=== PATIENT | male | born 2000 | race Caucasian/White ===

== ENCOUNTER 2018-05-22 21:42 | Emergency (ER) | payer OTHER | END 2018-05-23 00:59 | disposition home or self-care (01) | LOC: FTE 21:42 | DX: M79.641 Pain in right hand (principal) | CPT/HCPCS: 29125; 73110-RT; 73130-RT; 99283-25 ==

== ENCOUNTER 2018-05-26 21:00 | Emergency (ER) | payer OTHER ==
[2018-05-26] MEDS: SOD CHLORIDE 0.9% 1,000 ML IV ×2 (21:28)
[2018-05-26 21:29] LABS: ADD MAN DIFF? NO
[2018-05-26] MEDS ORDERED: SOD CHLORIDE 0.9% 250 ML IV (21:30)
[2018-05-26 21:32] LABS: BASOPHIL # 0.1 10^3/ul (0.0-0.1); BASOPHILS % 0.6 % (0.0-2.0); EOSINOPHILS # 0.1 10^3/ul (0.0-0.5); EOSINOPHILS % 0.6 % (0.0-7.0); HEMATOCRIT 50.9 % (42.0-52.0); LYMPHOCYTES % 34.1 % (18.0-55.0); MEAN CORPUSCULAR HEMOGLOBIN 29.5 pg (29.0-33.0); MEAN CORPUSCULAR HGB CONC 35.4 g/dl (32.0-37.0); MEAN CORPUSCULAR VOLUME 83.3 fl (72.0-104.0); MEAN PLATELET VOLUME 9.8 fl (7.4-10.4); MONOCYTE # 0.8 10^3/ul (0.3-0.9); MONOCYTES % 6.8 % (0.0-13.0); NEUTROPHIL # 6.6 10^3/ul (1.6-7.5); NEUTROPHILS % 56.7 % (30.0-74.0); PLATELET COUNT 376 10^3/UL (140-415); RED BLOOD COUNT 6.11 10^6/ul (4.70-6.10); RED CELL DISTRIBUTION WIDTH 11.6 % (11.5-14.5)
[2018-05-26 21:32] LABS: WHITE BLOOD COUNT 11.6 10^3/ul (4.8-10.8)
[2018-05-26] MEDS: LEVETIRACETAM 1000 MG (PMX) 100 ML IVPB (21:35)
[2018-05-26 21:51] LABS: ANION GAP 15 (5-13); BLOOD UREA NITROGEN 12 mg/dl (7-20); CALCIUM 8.3 mg/dl (8.4-10.2); CARBON DIOXIDE 12 mmol/L (21-31); CHLORIDE 114 mmol/L (97-110); CREATININE 0.89 mg/dl (0.61-1.24); Estimated GFR > 60 mL/min (>60); GLUCOSE 94 mg/dl (70-220); POTASSIUM 3.1 mmol/L (3.5-5.1); SODIUM 141 mmol/L (135-144)
[2018-05-26] MEDS: POTASSIUM CHLORIDE (SR) 20 MEQ TAB PO ×2 (22:54)
== END 2018-05-26 23:09 | disposition home or self-care (01) ==
LOC: E/R 21:00
DX: G40.909 Epilepsy, unspecified, not intractable, without status epilepticus (principal); E86.0 Dehydration; E87.6 Hypokalemia; R40.2142 Coma scale, eyes open, spontaneous, at arrival to emergency department; R40.2252 Coma scale, best verbal response, oriented, at arrival to emergency department; R40.2362 Coma scale, best motor response, obeys commands, at arrival to emergency department
CPT/HCPCS: 36415; 80048; 82962; 85025; 93005; 96361; 96374; 99284-25